=== PATIENT | male | born 1985 | race Caucasian/White ===

== ENCOUNTER 2019-10-27 14:14 | Emergency (ER) | payer SELFPAY ==
[~2019-10-27] VITALS: Ht 182.9 cm; Wt 136.0 kg
[2019-10-27 14:37] LABS: BASO # 0.1 x10^3/uL (0.0-0.2); BASO % 1 % (0-3); EOS # 0.2 x10^3/uL (0.0-0.7); EOS % 2 % (0-3); HEMATOCRIT 42.1 % (39.0-53.0); LYMPH # 2.4 x10^3/uL (1.0-4.8); LYMPH % 19 % (24-48); MEAN CORPUSCULAR HEMOGLOBIN 29 pg (25-35); MEAN CORPUSCULAR HGB CONC 36 g/dL (31-37); MEAN CORPUSCULAR VOLUME 80 fL (79-100); MONO # 0.9 x10^3/uL (0.0-1.1); MONO % 8 % (0-9); NEUT # 8.6 x10^3/uL (1.8-7.7); NEUT % 70 % (31-73); PLATELET COUNT 275 x10^3/uL (140-400); RED BLOOD COUNT 5.26 x10^6/uL (4.30-5.70); RED CELL DISTRIBUTION WIDTH 14.3 % (11.5-14.5); WHITE BLOOD COUNT 12.3 x10^3/uL (4.0-11.0)
[2019-10-27 14:47] LABS: PROTHROMBIN TIME PATIENT 13.6 SEC (11.7-14.0)
[2019-10-27 14:54] LABS: CALCIUM 8.9 mg/dL (8.5-10.1); CREATININE 1.1 mg/dL (0.7-1.3); GFR 77.1; POTASSIUM 3.6 mmol/L (3.5-5.1)
--- NOTE | 2019-10-27 14:57 | RAD ---
Examination: PORTABLE CHEST 1V History: Reason: CHEST PAIN / Spl. Instructions: / History: Comparison/Correlation: None Findings: Portable upright frontal view of chest was obtained. Heart size and pulmonary vasculature are normal. No infiltrate or pleural effusion. No pneumothorax. Bony structures are unremarkable. Impression: No active disease. Electronically signed by: Placido Dickson MD (10/27/2019 2:54 PM) [id number]
--- NOTE | 2019-10-27 14:58 | EKG ---
[facility] [address] [place] [address] Test Date: 2019-10-27 Test Time: 14:20:27 Pat Name: MICHAEL ROWLAND Department: Room: Gender: M Fire Lieutenant: : 1985 Requested By: YNES JOAQUIN Order Number: [id number] Reading MD: Amanuel Ren Measurements Intervals [place] Rate: 104 P: 35 WA: 156 QRS: 31 QRSD: 100 T: 34 QT: 334 QTc: 445 Interpretive Statements SINUS TACHYCARDIA S1,S2,S3 PATTERN NONSPECIFIC ST-T WAVE CHANGES. Electronically Signed On 10-30-2019 16:12:04 CDT by Amanuel Ren
[2019-10-27 15:08] LABS: ALBUMIN 3.7 g/dL (3.4-5.0); MAGNESIUM 1.6 mg/dL (1.8-2.4); TOTAL BILIRUBIN 0.6 mg/dL (0.2-1.0); TOTAL PROTEIN 7.3 g/dL (6.4-8.2)
[2019-10-27] MEDS ORDERED: MAGNESIUM SULFATE 2GM 50 ML IV ONE (15:30)
[2019-10-27] MEDS ORDERED: CONTRAST GIVEN. MC PRN (15:45)
[2019-10-27] MEDS ORDERED: IOHEXOL 300 MG/ML 100ML VIAL. IV ONE (15:45)
--- NOTE | 2019-10-27 16:14 | PHYS DOC ---
Past Medical History Past Medical History: No Pertinent History Past Surgical History: No Surgical History Smoking Status: Current Every Day Smoker Alcohol Use: None General Adult EDM: Chief Complaint: abdominal pain HPI: HPI: Patient is a 34 year old male who presented for evaluation of bilateral flank pain, epigastric abdominal apin, symptoms radiated to his lower abdominal area since 10:45 AM this morning. Patient denies any nausea vomiting, no diarrhea, no fever, no cough, no urinary frequency. Patient denies any history of kidney stone. Patient denies any history of diabetes or hypertension. No history of heart disease. Review of Systems: Review of Systems: Constitutional: Denies fever or chills. [] Eyes: Denies change in visual acuity. [] HENT: Denies nasal congestion or sore throat. [] Respiratory: Denies cough or shortness of breath. [] Cardiovascular: Denies chest pain or edema. [] GI: Positive for abdominal pain, no nausea vomiting or diarrhea. : Denies dysuria. [] Musculoskeletal: Denies back pain or joint pain. [] Integument: Denies rash. [] Neurologic: Denies headache, focal weakness or sensory changes. [] Endocrine: Denies polyuria or polydipsia. [] Lymphatic: Denies swollen glands. [] Psychiatric: Denies depression or anxiety. [] Heart Score: Risk Factors: Risk Factors: DM, Current or recent (<one month) smoker, HTN, HLP, family history of CAD, obesity. Risk Scores: Score 0 - 3: 2.5% MACE over next 6 weeks - Discharge Home Score 4 - 6: 20.3% MACE over next 6 weeks - Admit for Clinical Observation Score 7 - 10: 72.7% MACE over next 6 weeks - Early Invasive Strategies Current Medications: Current Medications Medications (Trade) Dose Ordered Sig/Clementina Start Time Stop Time Status Last Admin Dose Admin Info (CONTRAST GIVEN -- Rx MONITORING) 1 each PRN DAILY PRN 10/27/19 15:45 10/29/19 15:44 Iohexol (Omnipaque 300 Mg/ml) 75 ml 1X ONCE 10/27/19 15:45 10/27/19 15:46 DC Magnesium Sulfate 50 ml @ 25 mls/hr 1X ONCE 10/27/19 15:30 10/27/19 17:29 Allergies: Allergies: Allergies Coded Allergies Type Severity Reaction Last Updated Verified No Known Drug Allergies 10/27/19 No Physical Exam: PE: Constitutional: Well developed, well nourished, no acute distress, non-toxic appearance. Obese HENT: Normocephalic, atraumatic, bilateral external ears normal, oropharynx moist, no oral exudates, nose normal. [] Eyes: PERRLA, EOMI, conjunctiva normal, no discharge. [] Neck: Normal range of motion, no tenderness, supple, no stridor. [] Cardiovascular:Heart rate regular rhythm, no murmur [] Lungs & Thorax: Bilateral breath sounds clear to auscultation [] Abdomen: Bowel sounds normal, there is Tenderness to palpation in lower abdominal area, no masses, no pulsatile masses. [] Skin: Warm, dry, no erythema, no rash. [] Back: No tenderness, no CVA tenderness. [] Extremities: No tenderness, no cyanosis, no clubbing, ROM intact, no edema. [] Neurologic: Alert and oriented X 3, normal motor function, normal sensory function, no focal deficits noted. [] Psychologic: Affect normal, judgement normal, mood normal. [] Current Patient Data: Labs: Laboratory Tests Test 10/27/19 14:30 White Blood Count 12.3 x10^3/uL (4.0-11.0) H Red Blood Count 5.26 x10^6/uL (4.30-5.70) Hemoglobin 15.0 g/dL (13.0-17.5) Hematocrit 42.1 % (39.0-53.0) Mean Corpuscular Volume 80 fL (79-100) Mean Corpuscular Hemoglobin 29 pg (25-35) Mean Corpuscular Hemoglobin Concent 36 g/dL (31-37) Red Cell Distribution Width 14.3 % (11.5-14.5) Platelet Count 275 x10^3/uL (140-400) Neutrophils (%) (Auto) 70 % (31-73) Lymphocytes (%) (Auto) 19 % (24-48) L Monocytes (%) (Auto) 8 % (0-9) Eosinophils (%) (Auto) 2 % (0-3) Basophils (%) (Auto) 1 % (0-3) Neutrophils # (Auto) 8.6 x10^3/uL (1.8-7.7) H Lymphocytes # (Auto) 2.4 x10^3/uL (1.0-4.8) Monocytes # (Auto) 0.9 x10^3/uL (0.0-1.1) Eosinophils # (Auto) 0.2 x10^3/uL (0.0-0.7) Basophils # (Auto) 0.1 x10^3/uL (0.0-0.2) Prothrombin Time 13.6 SEC (11.7-14.0) Prothrombin Time INR 1.1 (0.8-1.1) Activated Partial Thromboplast Time 28 SEC (24-38) Sodium Level 137 mmol/L (136-145) Potassium Level 3.6 mmol/L (3.5-5.1) Chloride Level 101 mmol/L (98-107) Carbon Dioxide Level 23 mmol/L (21-32) Anion Gap 13 (6-14) Blood Urea Nitrogen 15 mg/dL (8-26) Creatinine 1.1 mg/dL (0.7-1.3) Estimated GFR (Cockcroft-Gault) 77.1 BUN/Creatinine Ratio 14 (6-20) Glucose Level 127 mg/dL (70-99) H Calcium Level 8.9 mg/dL (8.5-10.1) Magnesium Level 1.6 mg/dL (1.8-2.4) L Total Bilirubin 0.6 mg/dL (0.2-1.0) Aspartate Amino Transferase (AST) 55 U/L (15-37) H Alanine Aminotransferase (ALT) 63 U/L (16-63) Alkaline Phosphatase 133 U/L (46-116) H Troponin I Quantitative < 0.017 ng/mL (0.000-0.055) SD-Kns-F-Type Natriuretic Peptide 50 pg/mL (0-124) Total Protein 7.3 g/dL (6.4-8.2) Albumin 3.7 g/dL (3.4-5.0) Albumin/Globulin Ratio 1.0 (1.0-1.7) Lipase 97 U/L (73-393) Laboratory Tests 10/27/19 14:30 Laboratory Tests 10/27/19 14:30 Vital Signs: Vital Signs Date Time Temp Pulse Resp B/P (MAP) Pulse Ox O2 Delivery O2 Flow Rate FiO2 10/27/19 14:32 98.3 107 18 128/77 (94) 98 Room Air 98.3 EKG: EKG: EKG was done at 1420, heart rate of 104 bpm, sinus tachycardia, no ST segment elevation [] Radiology/Procedures: Radiology/Procedures: [][facility] [address] [place] [address] IMAGING REPORT Signed PATIENT: MICHAEL ROWLAND ACCOUNT: [id number] : 1985 LOCATION: ER AGE: 34 SEX: M EXAM STATUS: REG ER ORD. PHYSICIAN: YNES JOAQUIN DO REASON: CHEST PAIN PROCEDURE: PORTABLE CHEST 1V Examination: PORTABLE CHEST 1V History: Reason: CHEST PAIN / Spl. Instructions: / History: Comparison/Correlation: None Findings: Portable upright frontal view of chest was obtained. Heart size and pulmonary vasculature are normal. No infiltrate or pleural effusion. No pneumothorax. Bony structures are unremarkable. Impression: No active disease. Electronically signed by: Placido Dickson MD (10/27/2019 2:54 PM) [id number] DICTATED and SIGNED BY: PLACIDO DICKSON MD DATE: 10/27/19 1454 Course & Med Decision Making: Course & Med Decision Making Pertinent Labs and Imaging studies reviewed. (See chart for details) Patient is a 33-year-old male who was evaluated in the ER due to bilateral flank pain that radiates to his lower abdominal area, CT scan of his abdomen pelvis did not show any acute problem, however he had fatty liver. Patient magnesium level was low, patient was given magnesium sulfate in the ER, patient pain improved significantly after treatment. Patient was pain-free at discharge, patient denies any chest pain, no trouble breathing. Dragon Disclaimer: Dragon Disclaimer: This electronic medical record was generated, in whole or in part, using a voice recognition dictation system. Departure Departure Impression: Primary Impression: Abdominal pain Additional Impression: Fatty liver Disposition: HOME, SELF-CARE Condition: STABLE Referrals: NO PCP (PCP) PLEASE FOLLOW UP WITH YOUR FAMILY DOCTOR IN 2 DAYS FOR REEVALUATION. Patient Instructions: Abdominal Pain Justicifation of Admission Dx: Justifications for Admission: Justification of Admission Dx: N/A YNES JOAQUIN DO Oct 27, 2019 16:14
--- NOTE | 2019-10-27 16:17 | RAD ---
Study: CT abdomen/pelvis with intravenous contrast Indication: Abdominal pain. Comparison: None. Technique: Helical CT imaging performed of the abdomen and pelvis after the intravenous administration of 75 cc Omnipaque 300 contrast. Sagittal and coronal reformats were obtained. One or more of the following individualized dose reduction techniques were utilized for this examination: 1. Automated exposure control 2. Adjustment of the mA and/or kV according to patient size 3. Use of iterative reconstruction technique. Findings: Chest: Unremarkable. Liver: Hepatic steatosis. Gallbladder/Biliary Tree: No CT findings to suggest acute cholecystitis. Fatty sparing seen along the gallbladder fossa. Pancreas: Unremarkable. Spleen: Within normal limits for size. Adrenal Glands: Unremarkable. Kidneys/Ureters/Bladder: Unremarkable noting mild motion degradation. Reproductive Organs: Unremarkable. Colon: Unremarkable. Appendix: Normal. Small Bowel: Nonobstructed. Normally located ligament of Treitz. Stomach: Unremarkable. Vasculature: Unremarkable. Lymph Nodes: Unremarkable. Peritoneum and Body Wall: No free fluid or air. Unremarkable body wall soft tissues. Bones: No acute or aggressive osseous process. Miscellaneous: None. Impression: 1. No acute abnormality identified throughout the abdomen or pelvis. 2. Hepatic steatosis. Electronically signed by: NATIVIDAD NEVAREZ MD (10/27/2019 4:15 PM) [id number]
[2019-10-27 16:59] LABS: BILIRUBIN,URINE SMALL (NEG); CLARITY,URINE CLEAR; COLOR,URINE AMBER; NITRITE,URINE NEGATIVE (NEG); PH,URINE 5.5 (<5.0-8.0); PROTEIN,URINE NEGATIVE (NEG-TRACE)
[2019-10-27 17:04] LABS: BACTERIA,URINE 0 /HPF (0-FEW); RBC,URINE 0 /HPF (0-2)
[2019-10-27 17:05] LABS: BARBITURATES NEG (NEG); BENZODIAZEPINES NEG (NEG); CANNABINOIDS POS (NEG); COCAINE NEG (NEG); METHADONE NEG (NEG); OPIATES NEG (NEG); PHENCYCLIDINE NEG (NEG)
[2019-10-27 17:11] LABS: AMPHETAMINE/METHAMPHETAMINE NEG (NEG)
[2019-10-27 18:30] VITALS: BP 134/69
== END 2019-10-27 19:12 | disposition home or self-care (01) ==
LOC: ER 14:14
DX: R10.13 Epigastric pain (principal); K76.0 Fatty (change of) liver, not elsewhere classified; R10.30 Lower abdominal pain, unspecified; F17.200 Nicotine dependence, unspecified, uncomplicated
CPT/HCPCS: 36415; 71045; 74177; 80053; 80307; 81001; 83690; 83735; 83880; 84484; 85025; 85610; 85730; 87086; 93005; 96365; 96366; 99285; J3475; Q9967

== ENCOUNTER 2019-11-02 10:35 | Emergency (ER) | payer SELFPAY ==
[~2019-11-02] VITALS: Ht 182.9 cm; Wt 136.0 kg
[2019-11-02 10:43] VITALS: BP 130/82
[2019-11-02] MEDS ORDERED: LIDOCAINE 2%/EPI 1:100,000 20 ML VIAL. IJ ONE (11:00)
[2019-11-02] MEDS ORDERED: NEOMY/BACITR/POLYMYXIN OINT PACKET. TP ONE (11:00)
--- NOTE | 2019-11-02 11:27 | RAD ---
AP, lateral, and oblique views of the right hand were performed. History: Laceration, evaluate for retained foreign body Comparison: none. No fracture or dislocation is seen. The joint spaces are normal in appearance. No significant soft tissue swelling is seen. Impression: 1. Negative exam of the right hand. No radiopaque retained foreign body is identified. Electronically signed by: Ibrahima Camejo MD (11/02/2019 11:24 AM) [id number]
--- NOTE | 2019-11-02 11:39 | PHYS DOC ---
Past Medical History Past Medical History: No Pertinent History Past Surgical History: No Surgical History Smoking Status: Current Every Day Smoker Alcohol Use: None Drug Use: None General Adult EDM: Chief Complaint: LACERATION/AVULSION HPI: HPI: Patient is a 34 year old male with report of right palmar laceration after he went to [employer] his phone and cut himself on a piece of glass. Patient reports he had broken a drinking glass previously and apparently had left 1 of the charges on the ground. Patient reports tetanus booster within the last 5 years. Patient does report he has an "extreme fear of needles ". Review of Systems: Review of Systems: Constitutional: Denies fever or chills Eyes: Denies redness or eye pain HENT: Denies nasal congestion or sore throat Respiratory: Denies cough or shortness of breath Cardiovascular: Denies chest pain or palpitations GI: Denies abdominal pain, nausea, or vomiting : Denies dysuria or hematuria Musculoskeletal: Denies back pain or joint pain Integument: Denies rash; reports laceration to right palm Neurologic: Denies headache, focal weakness or sensory changes Complete systems were reviewed and found to be within normal limits, except as documented in this note. Current Medications: Current Medications Medications (Trade) Dose Ordered Sig/[facility] Start Time Stop Time Status Last Admin Dose Admin Lidocaine/ Epinephrine (LIDOCAINE 2%-EPI 1:100,000 multi-dose) 20 ml 1X ONCE 11/02/19 11:00 11/02/19 11:03 DC 11/02/19 11:22 20 ML Neomycin/ Polymyxin/ Bacitracin (Triple Antibiotic Ointment) 1 pkt 1X ONCE 11/02/19 11:00 11/02/19 11:03 DC 11/02/19 11:21 1 PKT Allergies: Allergies: Allergies Coded Allergies Type Severity Reaction Last Updated Verified No Known Drug Allergies 10/27/19 No Physical Exam: PE: Constitutional: Well developed, well nourished, no acute distress, non-toxic appearance HENT: Normocephalic, atraumatic Eyes: Conjunctiva normal, no discharge Neck: Normal range of motion, no tenderness, supple Cardiovascular: Right radial pulse +2, CR < 2 sec Lungs & Thorax: No respiratory distress, equal chest rise and fall Skin: Warm, dry, no erythema, 2cm laceration to medial palmar aspect Extremities: No tenderness, ROM intact, no edema Neurologic: Alert and oriented X 3, no focal deficits noted Psychologic: Affect normal, judgment normal Current Patient Data: Vital Signs: Vital Signs Date Time Temp Pulse Resp B/P (MAP) Pulse Ox O2 Delivery O2 Flow Rate FiO2 11/02/19 10:43 99.0 119 20 130/82 (98) 96 Room Air 99.0 EKG: EKG: [] Radiology/Procedures: Radiology/Procedures: PROCEDURE: HAND RIGHT 3V AP, lateral, and oblique views of the right hand were performed. History: Laceration, evaluate for retained foreign body Comparison: none. No fracture or dislocation is seen. The joint spaces are normal in appearance. No significant soft tissue swelling is seen. Impression: 1. Negative exam of the right hand. No radiopaque retained foreign body is identified. Electronically signed by: Ibrahima Camejo MD (11/02/2019 11:24 AM) [id number] Course & Med Decision Making: Course & Med Decision Making Pertinent Imaging studies reviewed. (See chart for details) Patient presents with laceration to right palm after cutting it on a "shard of glass". Tetanus up to date. XR without signs of retained foreign body. Wound cleaned, anesthetized, repaired with suture, and dressed. During last suture placement, patient reported not feeling well and became diaphoretic. Suture was able to be placed and attempted to dress. Prior to dressing placement patient passed out. Patient did fall forward off of chair but was helped by myself down to ground. Patient did not strike head. Patient immediately awoke and was helped back into chair. Chair placed in partial [place] and patient provided cool rags and a drink of water. Patient reevaluated and patient reports he is now feeling better. Reports he has an "extreme fear of needles". Patient evaluated without any significant traumatic injury. All joints stable. Patient ambulates without difficulty. Patient stable for discharge with outpatient follow-up with PCP. Discussed findings and plan with patient, who acknowledges understanding and agreement. Supa Disclaimer: Supa Disclaimer: This electronic medical record was generated, in whole or in part, using a voice recognition dictation system. Laceration/Wound Repair Laceration/Wound Repair : Wound Location: upper extremity (right palmar hand) Wound's Depth, Shape: superficial, linear Wound Length (cm): 2 Wound Explored: no foreign body removed Irrigated w/ Saline (ccs): 200 Anesthesia: Lidocaine w/ Epi (2%) Volume Anesthetic (ccs): 2 Wound Debrided: minimal Wound Repaired With: sutures Suture Size/Type: 5:0, nylon Number of Sutures: 3 Sterile Dressing Applied?: Yes Progress Verbal consent obtained. Time out performed. Hand hygiene utilized. Wound cleaned with ChloraPrep. Anesthesia obtained via a 30-gauge hypodermic needle with (2) mL's of lidocaine 2% with epinephrine. Copious irrigation performed. Wound well approximated with 5-0 Nylon x 3 simple interrupted. Patient tolerated procedure but became very diaphoretic and had vasovagal syncopal episode. Empiric antibiotic ointment applied prior to sterile dressing. Departure Departure Impression: Primary Impression: Laceration Additional Impression: Vasovagal reaction Disposition: 01 HOME, SELF-CARE Condition: STABLE Referrals: NO PCP (PCP) Patient Instructions: Laceration Care, Adult, [id number] Additional Instructions: Do not soak your wound. You may shower. Clean wound daily with soap and water. Change dressing 2 times daily. Use over the counter antibiotic ointment with each dressing change. Sutures need to be removed in 7-10 days. Present to your family doctor or local urgent care for removal. You may also present to the ED but it will be an additional visit/charge. After suture removal you may use Vitamin E ointment to soften the wound and prevent scarring. During the procedure, you passed out. This is called vasovagal reaction. Unfortunately, this is a common reaction. Please drink plenty of fluid today and rest and make sure to eat normally. Justicifation of Admission Dx: Justifications for Admission: Justification of Admission Dx: N/A HIREN NORTON DO Nov 02, 2019 11:39
== END 2019-11-02 12:06 | disposition home or self-care (01) ==
LOC: ER 10:35
DX: S61.411A Laceration without foreign body of right hand, initial encounter (principal); R55 Syncope and collapse; F17.200 Nicotine dependence, unspecified, uncomplicated; W25.XXXA Contact with sharp glass, initial encounter; Y93.89 Activity, other specified; Y92.89 Other specified places as the place of occurrence of the external cause; Y99.8 Other external cause status
CPT/HCPCS: 12001; 73130; 99283; J3490

== ENCOUNTER 2019-11-15 01:08 | Emergency (ER) | payer SELFPAY ==
[~2019-11-15] VITALS: Ht 180.3 cm; Wt 151.3 kg
[2019-11-15] MEDS ORDERED: TRAM-48 PO (02:16)
--- NOTE | 2019-11-15 02:17 | PHYS DOC ---
Past Medical History Past Medical History: No Pertinent History Past Surgical History: No Surgical History Smoking Status: Current Every Day Smoker Alcohol Use: None Drug Use: None General Adult EDM: Chief Complaint: HIP PAIN HPI: HPI: 34 year old male presents with the chief complaint of right hip pain. Patient denies any injuries. States pain since he was in his 20's. Previously took ibuprofen but states unable due to ulcers. Patient ambulated into the ER. Patient has full range of motion of extremities. Review of Systems: Review of Systems: Constitutional: Denies fever or chills. [] Eyes: Denies change in visual acuity. [] HENT: Denies nasal congestion or sore throat. [] Respiratory: Denies cough or shortness of breath. [] Cardiovascular: Denies chest pain or edema. [] GI: Denies abdominal pain, nausea, vomiting, bloody stools or diarrhea. [] : Denies dysuria. [] Musculoskeletal: Denies back pain or joint pain. [] Integument: Denies rash. [] Neurologic: Denies headache, focal weakness or sensory changes. [] Endocrine: Denies polyuria or polydipsia. [] Lymphatic: Denies swollen glands. [] Psychiatric: Denies depression or anxiety. [] Heart Score: Risk Factors: Risk Factors: DM, Current or recent (<one month) smoker, HTN, HLP, family history of CAD, obesity. Risk Scores: Score 0 - 3: 2.5% MACE over next 6 weeks - Discharge Home Score 4 - 6: 20.3% MACE over next 6 weeks - Admit for Clinical Observation Score 7 - 10: 72.7% MACE over next 6 weeks - Early Invasive Strategies Allergies: Allergies: Allergies Coded Allergies Type Severity Reaction Last Updated Verified No Known Drug Allergies 10/27/19 No Physical Exam: PE: Constitutional: Well developed, well nourished, no acute distress, non-toxic appearance. [] HENT: Normocephalic, atraumatic, bilateral external ears normal, oropharynx moist, no oral exudates, nose normal. [] Eyes: PERRLA, EOMI, conjunctiva normal, no discharge. [] Neck: Normal range of motion, no tenderness, supple, no stridor. [] Cardiovascular:Heart rate regular rhythm, no murmur [] Lungs & Thorax: Bilateral breath sounds clear to auscultation [] Abdomen: Bowel sounds normal, soft, no tenderness, no masses, no pulsatile masses. [] Skin: Warm, dry, no erythema, no rash. [] Back: No tenderness, no CVA tenderness. MS[] positive right hip pain No tenderness, no cyanosis, no clubbing, ROM intact, no edema. [] Neurologic: Alert and oriented X 3, normal motor function, normal sensory function, no focal deficits noted. [] Psychologic: Affect normal, judgement normal, mood normal. [] EKG: EKG: [] Radiology/Procedures: Radiology/Procedures: [] Course & Med Decision Making: Course & Med Decision Making Pertinent Labs and Imaging studies reviewed. (See chart for details) []Chronic hip pain. Has not used any OTC medications. Recommend tylenol. Will Rx ultram. Supa Disclaimer: Supa Disclaimer: This electronic medical record was generated, in whole or in part, using a voice recognition dictation system. Departure Departure Impression: Primary Impression: Chronic hip pain Disposition: HOME, SELF-CARE Condition: STABLE Referrals: NO PCP (PCP) Patient Instructions: Hip Pain Scripts Tramadol Hcl (ULTRAM) 50 Mg Tablet 1 TAB PO PRN Q6HRS PRN for pain MDD 4 Tablet(s) for 7 Days, #14 TAB 0 Refills Prov: GALEN TINOCO DO 11/15/19 Justicifation of Admission Dx: Justifications for Admission: Justification of Admission Dx: N/A GALEN TINOCO DO Nov 15, 2019 02:17
[2019-11-15 02:30] VITALS: BP 171/86
== END 2019-11-15 03:10 | disposition home or self-care (01) ==
LOC: ER 01:08
DX: G89.29 Other chronic pain (principal); M25.551 Pain in right hip; F17.200 Nicotine dependence, unspecified, uncomplicated
CPT/HCPCS: 99283